=== PATIENT | female | born 1975 | race Caucasian/White ===

== ENCOUNTER 2021-01-04 04:31 | Day surgery (SDC) | payer BC ==
[2021-01-01 10:10] VITALS: BMI 24.4
[2021-01-04 11:12] LABS: BASO % 0.4 % (0-2.0); EOS % 0.8 % (0-4.5); HEMOGLOBIN 13.8 GM/dL (10.7-15.3); LYMPH % 31.9 % (8-40); MCH 29.9 pg (25.7-33.7); MCHC 33.6 g/dl (32.0-36.0); MEAN CELL VOLUME 88.9 fl (80-96); MEAN PLT VOLUME 7.7 fl (7.5-11.1); MONO % 8.9 % (3.8-10.2); PLATELET COUNT 316 K/MM3 (134-434); RBC 4.62 M/mm3 (3.60-5.2); RDW 13.5 % (11.6-15.6); WHITE BLOOD COUNT 9.2 K/mm3 (4.0-10.0)
[2021-01-04 11:18] LABS: INR 0.92 (0.83-1.09); PROTHROMBIN TIME (PATIENT) 11.4 SEC (9.7-13.0)
[2021-01-04 11:21] LABS: ACTIVATED PTT 29.1 SECONDS (25.2-36.5)
[2021-01-04 11:29] LABS: CHLORIDE 107 mmol/L (98-107); SODIUM 140 mmol/L (136-145)
[2021-01-04 11:31] LABS: CALCIUM 9.2 mg/dL (8.5-10.1)
[2021-01-04 11:32] LABS: ALBUMIN 3.7 g/dl (3.4-5.0); ANION GAP 4 MMOL/L (8-16); BLOOD UREA NITROGEN 12.3 mg/dL (7-18); CO2 28 mmol/L (21-32); GLUCOSE,RANDOM 78 mg/dL (74-106)
[2021-01-04 11:36] LABS: CREATININE 0.7 mg/dL (0.55-1.3); SGOT/AST 19 U/L (15-37); SGPT/ALT 36 U/L (13-61)
[2021-01-04 11:37] LABS: BILIRUBIN,TOTAL 0.7 mg/dL (0.2-1)
[2021-01-04 11:38] LABS: ALK PHOS 73 U/L (45-117)
[2021-01-04] MEDS ORDERED: LIDOCAINE HCL/PF 2% SDV 5ML VIAL ONE (13:20)
[2021-01-04] MEDS ORDERED: PROPOFOL 20 ML ONE (13:21)
[2021-01-04] MEDS ORDERED: MIDAZOLAM HCL 2 MG/2 ML SINGLE DOSE VIAL ONE (13:23)
[2021-01-04] MEDS ORDERED: ceFAZolin 2 GRAM PREMIX BAG IVPB ONE (13:40)
[2021-01-04] MEDS ORDERED: ceFAZolin SODIUM 1 GM VIAL ONE (13:41)
[2021-01-04] MEDS ORDERED: DEXAMETHASONE SOD PHOSPHATE 4 MG/1 ML VIAL ONE (13:47)
[2021-01-04] MEDS ORDERED: KETOROLAC TROMETHAMINE 30 MG/1 ML VIAL ONE (14:03)
[2021-01-04] MEDS ORDERED: oxyCODONE HCL 5 MG TABLET PO PRN (14:39)
[2021-01-04] MEDS ORDERED: ONDANSETRON 4 MG/2 ML VIAL IVPUSH PRN (14:39)
[2021-01-04] MEDS ORDERED: LACTATED RINGERS SOLUTION 1,000 ML IV SCH (14:45)
[2021-01-04 16:08] VITALS: BP 143/78; PULSE 63; TEMP 97.6
== END 2021-01-04 16:10 | disposition home or self-care (01) ==
LOC: JASU-SURG 04:31
PROVIDERS: ATTEND Obstetrics & Gynecology
PROC: 0UDB8ZX Extraction of Endometrium, Via Natural or Artificial Opening Endoscopic, Diagnostic (ICD-10-PCS; 2021-01-04)
PROC: 0UB98ZZ Excision of Uterus, Via Natural or Artificial Opening Endoscopic (ICD-10-PCS; principal; 2021-01-04 13:50)
PROC: 0UN98ZZ Release Uterus, Via Natural or Artificial Opening Endoscopic (ICD-10-PCS; 2021-01-04 13:50)
DX: N93.8 Other specified abnormal uterine and vaginal bleeding (principal); D25.0 Submucous leiomyoma of uterus; N85.6 Intrauterine synechiae
CPT/HCPCS: 36415; 80053; 81025; 84702; 85025; 85610; 85730; 86850; 86900; 86901; 94760